=== PATIENT | female | born 1985 | race Caucasian/White ===

== ENCOUNTER 2017-02-28 13:54 | Inpatient (IN) | payer OTHER ==
[~2017-02-28] VITALS: Ht 152.4 cm; Wt 56.8 kg
[~2017-02-28 13:54] MED LIST: ACETAMINOPHEN500 MG PO; AMOXICILLIN500 M1 PO; B-1100 MG PO; BACTRIM,SEPT1 TABLET PO; BUPRENORPHIN SUB 8MG; BUTALB-APAP-CA1 EACH; CIPRO500 MG PO; CLEOCIN300 MG PO; Dulcolax PR; HYDROCODON-ACE1 EAC7 PO; LIBRIUM25 MG PO; MACROBID100 MG PO; NORCO 7.5/321 TABLET PO; PEN-VEE K,VEET500 MG PO; PERCOCET 5/31 TABLET PO; Percocet 5/325,Endoc PO; SUBUTEX PO; TYLENOL EXTRA500 MG PO; ULTRAM50 MG PO; ZEBUTAL CAPSUL1 EACH; ZOFRAN ODT4 MG PO; ZOFRAN4 MG PO
[2017-02-28 15:00] LABS: MCH 32.5 PG (29.0-34.0); MCV 98.5 FL (83-99); MEAN PLAT.VOLUME 10.2 uM^3 (9.5-12.4); PLATELET COUNT 207 K/uL (156-360); RBC DIS.WIDTH-SD 58.9 % (39-53); RED BLOOD COUNT 3.35 M/uL (3.80-5.20); WHITE BLOOD COUNT 11.5 K/uL (4.1-10.2)
[2017-02-28 15:09] LABS: CHLORIDE 81 mEq/L (99-109); SODIUM 131 mEq/L (136-147)
[2017-02-28 15:12] LABS: GLUCOSE 140 mg/dL (70-99)
[2017-02-28 15:13] LABS: ANION GAP 28 MEQ/L (2-14)
[2017-02-28 15:14] LABS: TOTAL BILIRUBIN 6.5 mg/dL (0.0-1.0)
[2017-02-28 15:15] LABS: ALKALINE PHOSPHATASE 329 IU/L (3-129); GFR ESTIMATE (CALCULATED) > 59 mL/min/
[2017-02-28 15:16] LABS: UREA NITROGEN (BUN) 7 mg/dL (9-23)
[2017-02-28 15:25] LABS: QUANTITATIVE HCG < 4.0 MIU/ML
[2017-02-28 15:26] LABS: ADD MIUA? YES; BILIRUBIN MODERATE; BLOOD SMALL; COLOR AMBER ((YELLOW)); GLUCOSE (STRIP) NEGATIVE; KETONES NEGATIVE; LEUKOCYTES TRACE; NITRITE NEGATIVE; PROTEIN (STRIP) 100; SPECIFIC GRAVITY 1.019 (1.000-1.030)
[2017-02-28 15:38] LABS: RED BLOOD CELLS 0-5 /HPF (0-5)
[2017-02-28 15:39] LABS: BACTERIA 2+ /HPF; EPITHELIAL CELLS 1+ /HPF; MUCUS NONE SEEN /LPF; UCUL ADDED? YES
[2017-02-28 15:48] LABS: AMYLASE 250 IU/L (1-118)
[2017-02-28 15:57] LABS: LIPASE 604 U/L (1.0-51.0)
[2017-02-28 16:00] LABS: POTASSIUM 2.4 mEq/L (3.7-5.4)
[2017-02-28 16:34] LABS: ICTOTEST POSITIVE
[2017-02-28 17:18] LABS: CARBON DIOXIDE (BICARBONATE) 29.3 MEQ/L (20-31)
[2017-02-28] MEDS ORDERED: MYCOSTATIN 100,60 ML PO (19:19)
[2017-02-28] MEDS ORDERED: VALTREX50 MG/ML PO (19:20)
[2017-02-28] MEDS ORDERED: ZUBSOLV 8.6-2.1 EACH SL (19:20)
[2017-02-28] MEDS ORDERED: PAXIL10 MG PO (19:21)
[2017-02-28] MEDS ORDERED: QUETIAPINE FUM200 MG PO (19:21)
[2017-02-28] MEDS ORDERED: TYLENOL EXTRA500 MG PO (19:22)
[2017-02-28] MEDS ORDERED: BENADRYL25 MG PO (19:22)
[2017-02-28] MEDS ORDERED: TRAZODONE HCL50 MG PO (19:22)
[2017-02-28 22:26] VITALS: BP 112/71
[2017-02-28 23:05] VITALS: BP 102/71
[2017-03-01 00:31] LABS: SERUM ETHYL ALCOHOL < 10 mg/dL
[2017-03-01 00:41] VITALS: BP 111/68
[2017-03-01 04:15] VITALS: BP 116/73
[2017-03-01 05:04] LABS: SODIUM 132 mEq/L (136-147)
[2017-03-01 05:07] LABS: SODIUM 132 mEq/L (136-147)
[2017-03-01 05:07] LABS: INTER. NORMALIZED RATIO 1.9; PROTHROMBIN TIME 19.2 (9.2-11.2); PTT 39.7 (25-32)
[2017-03-01 05:08] LABS: ANION GAP 20 MEQ/L (2-14)
[2017-03-01 05:09] LABS: TOTAL BILIRUBIN 6.2 mg/dL (0.0-1.0)
[2017-03-01 05:10] LABS: ANION GAP 19 MEQ/L (2-14); GFR ESTIMATE (CALCULATED) > 59 mL/min/
[2017-03-01 05:11] LABS: TOTAL BILIRUBIN 6.2 mg/dL (0.0-1.0); UREA NITROGEN (BUN) 3 mg/dL (9-23)
[2017-03-01 05:13] LABS: GFR ESTIMATE (CALCULATED) > 59 mL/min/
[2017-03-01 05:14] LABS: LIPASE 271 U/L (1.0-51.0); UREA NITROGEN (BUN) 3 mg/dL (9-23)
[2017-03-01 05:16] LABS: HEMATOCRIT 23.3 % (36.0-46.0); MCH 32.5 PG (29.0-34.0); MCHC 32.6 G/DL (30.0-36.0); MCV 99.6 FL (83-99); MEAN PLAT.VOLUME 10.7 uM^3 (9.5-12.4); RBC DIS.WIDTH-CV 15.7 % (11.8-14.6); RBC DIS.WIDTH-SD 56.3 % (39-53)
[2017-03-01 05:17] LABS: PLATELET COUNT 136 K/uL (156-360); RED BLOOD COUNT 2.34 M/uL (3.80-5.20); WHITE BLOOD COUNT 6.6 K/uL (4.1-10.2)
[2017-03-01 05:34] LABS: GLUCOSE 79 mg/dL (70-99)
[2017-03-01 05:35] LABS: ALKALINE PHOSPHATASE 230 IU/L (3-129); ALKALINE PHOSPHATASE 233 IU/L (3-129); AMYLASE 143 IU/L (1-118); AMYLASE 144 IU/L (1-118); CHLORIDE 91 mEq/L (99-109); CHLORIDE 92 mEq/L (99-109); GLUCOSE 79 mg/dL (70-99); POTASSIUM 2.2 mEq/L (3.7-5.4); POTASSIUM 2.3 mEq/L (3.7-5.4)
[2017-03-01 06:17] LABS: HEMATOCRIT 23.3 % (36.0-46.0); MCH 32.3 PG (29.0-34.0); MCHC 32.6 G/DL (30.0-36.0); MCV 99.1 FL (83-99); MEAN PLAT.VOLUME 10.2 uM^3 (9.5-12.4); PLATELET COUNT 155 K/uL (156-360); RBC DIS.WIDTH-CV 15.8 % (11.8-14.6); RBC DIS.WIDTH-SD 57.6 % (39-53); RED BLOOD COUNT 2.35 M/uL (3.80-5.20); WHITE BLOOD COUNT 6.6 K/uL (4.1-10.2)
[2017-03-01 06:30] LABS: GLOBULINS 2.7 G/DL (2.3-3.5)
[2017-03-01 06:41] LABS: EOSINOPHIL (%) 1.5 % (0-5); EOSINOPHIL COUNT 0.1 K/uL (0-0.3); IMMATURE GRANULOCYTE (%) 0.8 % (0.0-0.7); IMMATURE GRANULOCYTE COUNT 0.1 K/uL; INSTRUMENT ABS NEUTROPHIL CT 4.3 K/uL; LYMPHOCYTE COUNT 1.7 K/uL (1.0-2.8); MONOCYTE (%) 7.3 % (3-12); MONOCYTE COUNT 0.5 K/uL (0-0.8); NEUTROPHIL (%) 64.5 % (45-76); NEUTROPHIL COUNT 4.3 K/uL (1.8-6.4)
[2017-03-01 07:18] VITALS: BP 113/72
[2017-03-01 11:33] LABS: HBSG INDEX 0.27
[2017-03-01 11:34] LABS: HPCA INDEX 0.22
[2017-03-01 11:35] LABS: ANTI-HEPATITIS A VIRUS (IGM) Nonreactive; HAV INDEX 0.53
[2017-03-01 11:36] LABS: ANTI-HEPATITIS B CORE (IGM) Nonreactive; HBC IgM INDEX 0.16
[2017-03-01 11:39] VITALS: BP 110/71
[2017-03-01 13:22] LABS: FERRITIN 1071 NG/ML (10-291)
[2017-03-01 13:23] LABS: MAGNESIUM 1.9 mg/dl (1.3-2.7)
[2017-03-01 14:09] LABS: TRIGLYCERIDES 388 MG/DL (Normal: <150)
[2017-03-01 20:13] VITALS: BP 97/64
[2017-03-01 22:35] VITALS: BP 107/69
[2017-03-02] VITALS (15 sets, daily range): BP systolic 91–110; BP diastolic 52–82
[2017-03-02 07:22] LABS: INTER. NORMALIZED RATIO 2.3; PROTHROMBIN TIME 23.5 (9.2-11.2)
[2017-03-02 07:26] LABS: ALKALINE PHOSPHATASE 229 IU/L (3-129); AMYLASE 38 IU/L (1-118); ANION GAP 14 MEQ/L (2-14); CHLORIDE 95 MEQ/L (99-109); GFR ESTIMATE (CALCULATED) > 59 mL/min/; GLUCOSE 65 mg/dL (70-99); POTASSIUM 2.7 MEQ/L (3.7-5.4); SAMPLE HEMOLYSIS CHECK 0; SAMPLE ICTERIC CHECK 1; SAMPLE LIPEMIA CHECK 0; SODIUM 133 MEQ/L (136-147); TOTAL BILIRUBIN 5.4 MG/DL (0.0-1.0); UREA NITROGEN (BUN) 2 mg/dL (9-23)
[2017-03-02 07:37] LABS: HEMATOCRIT 21.3 % (36.0-46.0); MCH 32.9 PG (29.0-34.0); MCHC 32.4 G/DL (30.0-36.0); MCV 101.4 FL (83-99); MEAN PLAT.VOLUME 10.8 uM^3 (9.5-12.4); PLATELET COUNT 157 K/uL (156-360); RBC DIS.WIDTH-CV 15.7 % (11.8-14.6); RBC DIS.WIDTH-SD 58.4 % (39-53); WHITE BLOOD COUNT 7.4 K/uL (4.1-10.2)
[2017-03-02 10:49] LABS: IMM.RETIC FRACTION 17.4 % (3-19); RETIC HGB EQUIVALENT 31.1 (28-36); RETICULOCYTE COUNT 1.9 % (0.5-1.8)
[2017-03-02 11:24] LABS: LACTATE DEHYDROGENASE 193 IU/L (20-246)
[2017-03-02 13:04] LABS: HEMATOCRIT 25.5 % (36.0-46.0)
[2017-03-02 13:05] LABS: MCV 105.4 FL (83-99)
[2017-03-02 13:40] LABS: ALBUMIN 2.46 G/DL (3.6-4.9); ALBUMIN PERCENT 47.4 %; ALPHA-1 PERCENT 5.8 %; ALPHA-2 GLOBULIN 0.55 G/DL (0.45-0.85); ALPHA-2 PERCENT 10.5 %; GAMMA PERCENT 21.3 %; INTERPRETATION: Essentially normal.; SERUM GEL NO. 63-7
[2017-03-02 18:24] LABS: HEMATOCRIT 20.1 % (36.0-46.0); MCH 32.7 PG (29.0-34.0); MCHC 31.8 G/DL (30.0-36.0); MCV 102.6 FL (83-99); MEAN PLAT.VOLUME 10.3 uM^3 (9.5-12.4); PLATELET COUNT 176 K/uL (156-360); RBC DIS.WIDTH-CV 16.1 % (11.8-14.6); RBC DIS.WIDTH-SD 61.3 % (39-53); RED BLOOD COUNT 1.96 M/uL (3.80-5.20); WHITE BLOOD COUNT 7.2 K/uL (4.1-10.2)
[2017-03-02 20:51] LABS: INTER. NORMALIZED RATIO 2.1
[2017-03-02 21:08] LABS: ALKALINE PHOSPHATASE 220 IU/L (3-129); ANION GAP 10 MEQ/L (2-14); CHLORIDE 98 MEQ/L (99-109); GFR ESTIMATE (CALCULATED) > 59 mL/min/; GLUCOSE 132 mg/dL (70-99); POTASSIUM 3.3 MEQ/L (3.7-5.4); SAMPLE HEMOLYSIS CHECK 0; SAMPLE ICTERIC CHECK 1; SAMPLE LIPEMIA CHECK 0; SODIUM 134 MEQ/L (136-147); TOTAL BILIRUBIN 4.9 MG/DL (0.0-1.0); UREA NITROGEN (BUN) 2 mg/dL (9-23)
[2017-03-02 22:41] LABS: METH RESISTANT S AUREUS PCR NEGATIVE (NEGATIVE)
[2017-03-02 22:56] LABS: PROBE CHECK PASS; SPECIMEN PROCESSING CONTROL PASS
[2017-03-03] VITALS (20 sets, daily range): BP systolic 86–114; BP diastolic 54–84
[2017-03-03 01:54] LABS: HEMATOCRIT 29.1 % (36.0-46.0); MCH 31.9 PG (29.0-34.0); MCV 96.7 FL (83-99); MEAN PLAT.VOLUME 9.9 uM^3 (9.5-12.4); PLATELET COUNT 179 K/uL (156-360); RBC DIS.WIDTH-CV 17.4 % (11.8-14.6); RED BLOOD COUNT 3.01 M/uL (3.80-5.20); WHITE BLOOD COUNT 9.4 K/uL (4.1-10.2)
[2017-03-03 02:03] LABS: POTASSIUM 3.1 mEq/L (3.7-5.4); SODIUM 137 mEq/L (136-147)
[2017-03-03 02:07] LABS: ANION GAP 11 MEQ/L (2-14)
[2017-03-03 02:09] LABS: GFR ESTIMATE (CALCULATED) > 59 mL/min/
[2017-03-03 02:10] LABS: CHLORIDE 102 mEq/L (99-109); GLUCOSE 98 mg/dL (70-99); UREA NITROGEN (BUN) 3 mg/dL (9-23)
[2017-03-03 06:27] LABS: EOSINOPHIL (%) 0.2 % (0-5); HEMATOCRIT 27.7 % (36.0-46.0); IMMATURE GRANULOCYTE (%) 1.8 % (0.0-0.7); IMMATURE GRANULOCYTE COUNT 0.2 K/uL; INSTRUMENT ABS NEUTROPHIL CT 6.3 K/uL; LYMPHOCYTE COUNT 1.7 K/uL (1.0-2.8); MCH 31.9 PG (29.0-34.0); MCHC 32.5 G/DL (30.0-36.0); MCV 98.2 FL (83-99); MEAN PLAT.VOLUME 10.1 uM^3 (9.5-12.4); MONOCYTE (%) 10.1 % (3-12); MONOCYTE COUNT 0.9 K/uL (0-0.8); NEUTROPHIL (%) 69.2 % (45-76); NEUTROPHIL COUNT 6.3 K/uL (1.8-6.4); NRBC (%) 0.2 /100 WBC (0-0); PLATELET COUNT 179 K/uL (156-360); RBC DIS.WIDTH-CV 18.1 % (11.8-14.6); RBC DIS.WIDTH-SD 64.6 % (39-53); RED BLOOD COUNT 2.82 M/uL (3.80-5.20); WHITE BLOOD COUNT 9.1 K/uL (4.1-10.2)
[2017-03-03 06:31] LABS: INTER. NORMALIZED RATIO 1.8; PROTHROMBIN TIME 18.2 (9.2-11.2)
[2017-03-03 06:51] LABS: ALKALINE PHOSPHATASE 199 IU/L (3-129); ANION GAP 9 MEQ/L (2-14); CHLORIDE 104 MEQ/L (99-109); GFR ESTIMATE (CALCULATED) > 59 mL/min/; GLUCOSE 74 mg/dL (70-99); POTASSIUM 3.8 MEQ/L (3.7-5.4); SAMPLE HEMOLYSIS CHECK 0; SAMPLE ICTERIC CHECK 1; SAMPLE LIPEMIA CHECK 0; SODIUM 137 MEQ/L (136-147); TOTAL BILIRUBIN 4.2 MG/DL (0.0-1.0); UREA NITROGEN (BUN) 3 mg/dL (9-23)
[2017-03-03 09:23] LABS: CHLORIDE 105 mEq/L (99-109); POTASSIUM 3.8 mEq/L (3.7-5.4); SODIUM 138 mEq/L (136-147)
[2017-03-03 09:25] LABS: GLUCOSE 66 mg/dL (70-99)
[2017-03-03 09:26] LABS: ANION GAP 14 MEQ/L (2-14)
[2017-03-03 09:29] LABS: GFR ESTIMATE (CALCULATED) > 59 mL/min/
[2017-03-03 09:30] LABS: UREA NITROGEN (BUN) 3 mg/dL (9-23)
[2017-03-03 10:12] LABS: INTERNAL CONTROL VALID? YES
[2017-03-03 10:34] LABS: MAGNESIUM 1.7 mg/dL (1.3-2.7)
[2017-03-03 13:59] LABS: HEMATOCRIT 28.2 % (36.0-46.0); MCH 33.6 PG (29.0-34.0); MCV 101.8 FL (83-99); MEAN PLAT.VOLUME 10.3 uM^3 (9.5-12.4); NRBC (%) 0.3 /100 WBC (0-0); PLATELET COUNT 196 K/uL (156-360); RBC DIS.WIDTH-CV 19.5 % (11.8-14.6); RBC DIS.WIDTH-SD 71.2 % (39-53); RED BLOOD COUNT 2.77 M/uL (3.80-5.20); WHITE BLOOD COUNT 9.4 K/uL (4.1-10.2)
[2017-03-03 20:06] LABS: MITOCHONDRIAL (M2) ANTIBODIES+ <=20.0 U (<=20.0)
[2017-03-03 22:08] LABS: HEMATOCRIT 29.6 % (36.0-46.0); MCH 33.8 PG (29.0-34.0); MCHC 33.4 G/DL (30.0-36.0); MEAN PLAT.VOLUME 10.1 uM^3 (9.5-12.4); NRBC (%) 0.2 /100 WBC (0-0); PLATELET COUNT 180 K/uL (156-360); RBC DIS.WIDTH-CV 19.4 % (11.8-14.6); RBC DIS.WIDTH-SD 70.8 % (39-53); RED BLOOD COUNT 2.93 M/uL (3.80-5.20); WHITE BLOOD COUNT 8.2 K/uL (4.1-10.2)
[2017-03-04 03:00] VITALS: BP 91/62
[2017-03-04 06:24] LABS: EOSINOPHIL (%) 1.1 % (0-5); EOSINOPHIL COUNT 0.1 K/uL (0-0.3); IMMATURE GRANULOCYTE (%) 2.8 % (0.0-0.7); IMMATURE GRANULOCYTE COUNT 0.3 K/uL; INSTRUMENT ABS NEUTROPHIL CT 5.8 K/uL; LYMPHOCYTE COUNT 1.9 K/uL (1.0-2.8); MCH 32.4 PG (29.0-34.0); MCHC 32.3 G/DL (30.0-36.0); MCV 100.3 FL (83-99); MONOCYTE (%) 11.6 % (3-12); MONOCYTE COUNT 1.1 K/uL (0-0.8); NEUTROPHIL (%) 63.3 % (45-76); NEUTROPHIL COUNT 5.8 K/uL (1.8-6.4); PLATELET COUNT 180 K/uL (156-360); RBC DIS.WIDTH-CV 19.8 % (11.8-14.6); RBC DIS.WIDTH-SD 70.4 % (39-53); RED BLOOD COUNT 2.99 M/uL (3.80-5.20); WHITE BLOOD COUNT 9.1 K/uL (4.1-10.2)
[2017-03-04 06:41] LABS: INTER. NORMALIZED RATIO 1.7; PROTHROMBIN TIME 17.5 (9.2-11.2); PTT 34.6 (25-32)
[2017-03-04 06:42] LABS: CHLORIDE 105 mEq/L (99-109); POTASSIUM 3.5 mEq/L (3.7-5.4); SODIUM 137 mEq/L (136-147)
[2017-03-04 06:45] LABS: ANION GAP 13 MEQ/L (2-14)
[2017-03-04 06:47] LABS: ALKALINE PHOSPHATASE 205 IU/L (3-129)
[2017-03-04 07:00] LABS: GLUCOSE 85 mg/dL (70-99); TOTAL BILIRUBIN 3.5 mg/dL (0.0-1.0)
[2017-03-04 07:17] LABS: GFR ESTIMATE (CALCULATED) > 59 mL/min/
[2017-03-04 07:22] LABS: UREA NITROGEN (BUN) < 2 mg/dL (9-23)
[2017-03-04 07:30] VITALS: BP 103/68
[2017-03-04 09:25] LABS: QUANTITATIVE HCG < 4.0 MIU/ML
[2017-03-04 12:00] VITALS: BP 113/72
[2017-03-04 14:12] LABS: HEMATOCRIT 29.8 % (36.0-46.0); MCHC 32.2 G/DL (30.0-36.0); MCV 99.3 FL (83-99); MEAN PLAT.VOLUME 10.1 uM^3 (9.5-12.4); PLATELET COUNT 199 K/uL (156-360); RBC DIS.WIDTH-CV 19.4 % (11.8-14.6); RBC DIS.WIDTH-SD 68.4 % (39-53)
[2017-03-04 17:11] VITALS: BP 93/62
[2017-03-04 18:45] VITALS: BP 89/55
[2017-03-04 23:15] VITALS: BP 99/68
[2017-03-05 01:08] LABS: HEMATOCRIT 31.8 % (36.0-46.0); MCH 32.7 PG (29.0-34.0); MCHC 32.4 G/DL (30.0-36.0); MEAN PLAT.VOLUME 10.3 uM^3 (9.5-12.4); PLATELET COUNT 172 K/uL (156-360); RBC DIS.WIDTH-CV 19.9 % (11.8-14.6); RBC DIS.WIDTH-SD 70.5 % (39-53); RED BLOOD COUNT 3.15 M/uL (3.80-5.20); WHITE BLOOD COUNT 8.7 K/uL (4.1-10.2)
[2017-03-05 03:30] VITALS: BP 93/54
[2017-03-05 06:29] LABS: BASOPHIL COUNT 0.1 K/uL (0-0.1); EOSINOPHIL (%) 0.9 % (0-5); EOSINOPHIL COUNT 0.1 K/uL (0-0.3); HEMATOCRIT 30.4 % (36.0-46.0); IMMATURE GRANULOCYTE (%) 1.9 % (0.0-0.7); IMMATURE GRANULOCYTE COUNT 0.2 K/uL; INSTRUMENT ABS NEUTROPHIL CT 5.3 K/uL; LYMPHOCYTE COUNT 1.5 K/uL (1.0-2.8); MCH 32.1 PG (29.0-34.0); MCHC 31.6 G/DL (30.0-36.0); MCV 101.7 FL (83-99); MEAN PLAT.VOLUME 10.4 uM^3 (9.5-12.4); MONOCYTE (%) 12.3 % (3-12); NEUTROPHIL (%) 66.1 % (45-76); NEUTROPHIL COUNT 5.3 K/uL (1.8-6.4); PLATELET COUNT 191 K/uL (156-360); RBC DIS.WIDTH-CV 19.9 % (11.8-14.6); RED BLOOD COUNT 2.99 M/uL (3.80-5.20); WHITE BLOOD COUNT 8.1 K/uL (4.1-10.2)
[2017-03-05 07:12] LABS: ALKALINE PHOSPHATASE 191 IU/L (3-129); ANION GAP 11 MEQ/L (2-14); CHLORIDE 104 MEQ/L (99-109); DIRECT BILIRUBIN 1.9 mg/dL (0.0-0.3); GFR ESTIMATE (CALCULATED) > 59 mL/min/; GLUCOSE 68 mg/dL (70-99); POTASSIUM 3.5 MEQ/L (3.7-5.4); SAMPLE HEMOLYSIS CHECK 0; SAMPLE ICTERIC CHECK 0; SAMPLE LIPEMIA CHECK 0; SODIUM 137 MEQ/L (136-147)
[2017-03-05 07:14] LABS: MAGNESIUM 1.2 mg/dl (1.3-2.7); TOTAL BILIRUBIN 3.1 MG/DL (0.0-1.0); UREA NITROGEN (BUN) < 2 mg/dL (9-23)
[2017-03-05 07:30] VITALS: BP 101/65
[2017-03-05 12:32] VITALS: BP 114/67
[2017-03-05 13:39] LABS: HEMATOCRIT 32.9 % (36.0-46.0); MCH 32.7 PG (29.0-34.0); MCHC 32.2 G/DL (30.0-36.0); MCV 101.5 FL (83-99); MEAN PLAT.VOLUME 9.9 uM^3 (9.5-12.4); PLATELET COUNT 215 K/uL (156-360); RBC DIS.WIDTH-CV 19.8 % (11.8-14.6); RBC DIS.WIDTH-SD 72.6 % (39-53); RED BLOOD COUNT 3.24 M/uL (3.80-5.20); WHITE BLOOD COUNT 8.9 K/uL (4.1-10.2)
[2017-03-05] MEDS ORDERED: LEVOFLOXACIN750 MG PO (15:17)
[2017-03-05] MEDS ORDERED: XIFAXAN550 MG PO (15:18)
[2017-03-05] MEDS ORDERED: NICOTINE PATCH1 EAC2 TD (15:18)
[2017-03-05] MEDS ORDERED: FOLIC ACID1 MG PO (15:21)
[2017-03-05] MEDS ORDERED: THIAMINE HCL100 MG PO (15:21)
[2017-03-05] MEDS ORDERED: MEGA MULTI FOR1 EACH PO (15:22)
[2017-03-05] MEDS ORDERED: CONSTULOSE10 GM/15 M PO (15:31)
== END 2017-03-05 16:51 | disposition home or self-care (01) | DRG 871 ==
LOC: EME 13:54 → 4EAST 20:52 → EDOF 20:52 → 4EAST 22:15 → 4WEST 03-02 20:58 → 4EAST 03-03 15:56
PROVIDERS: Emergency Medicine; Hospitalist; Internal Medicine; Psychiatry & Neurology Neurology; Specialist
PROC: 30233N1 Transfusion of Nonautologous Red Blood Cells into Peripheral Vein, Percutaneous Approach (ICD-10-PCS; principal; 2017-03-02)
DX: A41.9 Sepsis, unspecified organism (principal); F10.239 Alcohol dependence with withdrawal, unspecified; F10.229 Alcohol dependence with intoxication, unspecified; Y90.0 Blood alcohol level of less than 20 mg/100 ml; E87.1 Hypo-osmolality and hyponatremia; E87.6 Hypokalemia; J69.0 Pneumonitis due to inhalation of food and vomit; R73.9 Hyperglycemia, unspecified; K21.9 Gastro-esophageal reflux disease without esophagitis; F31.9 Bipolar disorder, unspecified; G43.909 Migraine, unspecified, not intractable, without status migrainosus; K76.0 Fatty (change of) liver, not elsewhere classified; F17.200 Nicotine dependence, unspecified, uncomplicated; R64 Cachexia; E87.2 Acidosis; J45.909 Unspecified asthma, uncomplicated; G40.909 Epilepsy, unspecified, not intractable, without status epilepticus; A60.09 Herpesviral infection of other urogenital tract; B37.0 Candidal stomatitis; F41.9 Anxiety disorder, unspecified; F12.90 Cannabis use, unspecified, uncomplicated; F11.10 Opioid abuse, uncomplicated; K72.90 Hepatic failure, unspecified without coma; I95.9 Hypotension, unspecified; K70.10 Alcoholic hepatitis without ascites
CPT/HCPCS: 71010; 71020; 71111; 74020; 74177; 74183; 76705; 80048; 80048 91; 80053; 80076; 80306 90; 81003; 81256 90; 82140; 82150; 82272; 82390; 82607; 82728; 82803; 83010 90; 83605; 83615; 83690; 83735; 84100; 84165; 84478; 84702; 85014; 85018; 85025; 85027; 85045; 85610; 85730; 86038; 86256 90; 86705; 86709; 86803; 86900; 86901; 86920; 87040; 87077; 87086; 87186; 87340; 87641; 93005; 99281; 99285; C9113; G0480; J0574; J1644; J2060; J2270; J2405; J2543; J3411; J3430; J3475; J3480; J7030; J7050; J7120; J7512; P9016; S0028

== ENCOUNTER 2017-03-20 20:32 | Inpatient (IN) | payer OTHER ==
[~2017-03-20] VITALS: Ht 154.9 cm; Wt 66.0 kg
[~2017-03-20 20:32] MED LIST changes: +BENADRYL25 MG PO; +CONSTULOSE10 GM/15 M PO; +FOLIC ACID1 MG PO; +LEVOFLOXACIN750 MG PO; +MEGA MULTI FOR1 EACH PO; +MYCOSTATIN 100,60 ML PO; +NICOTINE PATCH1 EAC2 TD; +PAXIL10 MG PO; +QUETIAPINE FUM200 MG PO; +THIAMINE HCL100 MG PO; +TRAZODONE HCL50 MG PO; +VALTREX50 MG/ML PO; +XIFAXAN550 MG PO; +ZUBSOLV 8.6-2.1 EACH SL
[2017-03-20 21:32] LABS: HEMATOCRIT 31.9 % (36.0-46.0); MCH 32.6 PG (29.0-34.0); MCHC 31.7 G/DL (30.0-36.0); MCV 102.9 FL (83-99); MEAN PLAT.VOLUME 10.8 uM^3 (9.5-12.4); PLATELET COUNT 218 K/uL (156-360); WHITE BLOOD COUNT 11.4 K/uL (4.1-10.2)
[2017-03-20 21:41] LABS: CHLORIDE 104 mEq/L (99-109); POTASSIUM 3.7 mEq/L (3.7-5.4); SODIUM 139 mEq/L (136-147)
[2017-03-20 21:44] LABS: ANION GAP 7 MEQ/L (2-14); GLUCOSE 88 mg/dL (70-99)
[2017-03-20 21:45] LABS: TOTAL BILIRUBIN 1.7 mg/dL (0.0-1.0)
[2017-03-20 21:47] LABS: ALKALINE PHOSPHATASE 159 IU/L (3-129); GFR ESTIMATE (CALCULATED) > 59 mL/min/
[2017-03-20 21:48] LABS: UREA NITROGEN (BUN) 2 mg/dL (9-23)
[2017-03-20 21:50] LABS: LIPASE 27 U/L (1.0-51.0)
[2017-03-20 21:58] LABS: AMYLASE 26 IU/L (1-118)
[2017-03-20 22:06] LABS: SERUM ETHYL ALCOHOL < 10 mg/dL
[2017-03-20 22:24] LABS: INTER. NORMALIZED RATIO 1.4; PROTHROMBIN TIME 14.9 (9.2-11.2)
[2017-03-20 22:55] LABS: ADD MIUA? YES; BILIRUBIN NEGATIVE; BLOOD MODERATE; COLOR AMBER ((YELLOW)); GLUCOSE (STRIP) NEGATIVE; KETONES NEGATIVE; LEUKOCYTES TRACE; NITRITE NEGATIVE; PROTEIN (STRIP) 30; UROBILINOGEN 0.2 MG/DL (0.2-1.0)
[2017-03-20 22:58] LABS: BACTERIA RARE /HPF; EPITHELIAL CELLS 2+ /HPF; HYALINE CASTS 0-5 /LPF; MUCUS 2+ /LPF; RED BLOOD CELLS 20-30 /HPF (0-5)
[2017-03-21 01:20] LABS: QUANTITATIVE HCG < 4.0 MIU/ML
[2017-03-21 08:04] LABS: MAGNESIUM 1.2 mg/dL (1.3-2.7)
[2017-03-21] MEDS ORDERED: ZUBSOLV 8.6-2.1 EACH SL (08:46)
[2017-03-21 10:30] VITALS: BP 96/60
[2017-03-21 12:21] VITALS: BP 96/65
[2017-03-21 15:40] VITALS: BP 97/63
[2017-03-21 16:45] VITALS: BP 94/59
[2017-03-21 20:00] VITALS: BP 102/56
[2017-03-21 23:26] VITALS: BP 100/55
[2017-03-22 06:43] LABS: BASOPHIL COUNT 0.1 K/uL (0-0.1); EOSINOPHIL (%) 1.7 % (0-5); EOSINOPHIL COUNT 0.2 K/uL (0-0.3); HEMATOCRIT 30.2 % (36.0-46.0); IMMATURE GRANULOCYTE (%) 0.6 % (0.0-0.7); IMMATURE GRANULOCYTE COUNT 0.1 K/uL; INSTRUMENT ABS NEUTROPHIL CT 6.4 K/uL; LYMPHOCYTE COUNT 2.7 K/uL (1.0-2.8); MCH 32.3 PG (29.0-34.0); MCHC 31.5 G/DL (30.0-36.0); MCV 102.7 FL (83-99); MEAN PLAT.VOLUME 11.3 uM^3 (9.5-12.4); MONOCYTE (%) 7.3 % (3-12); MONOCYTE COUNT 0.7 K/uL (0-0.8); NEUTROPHIL (%) 63.3 % (45-76); NEUTROPHIL COUNT 6.4 K/uL (1.8-6.4); PLATELET COUNT 231 K/uL (156-360); RBC DIS.WIDTH-SD 64.3 % (39-53); RED BLOOD COUNT 2.94 M/uL (3.80-5.20)
[2017-03-22 07:16] LABS: ALKALINE PHOSPHATASE 146 IU/L (3-129); ANION GAP 9 MEQ/L (2-14); CHLORIDE 106 MEQ/L (99-109); GFR ESTIMATE (CALCULATED) > 59 mL/min/; GLUCOSE 77 mg/dL (70-99); POTASSIUM 3.4 MEQ/L (3.7-5.4); SAMPLE HEMOLYSIS CHECK 0; SAMPLE ICTERIC CHECK 0; SAMPLE LIPEMIA CHECK 0; SODIUM 139 MEQ/L (136-147); TOTAL BILIRUBIN 1.4 MG/DL (0.0-1.0); UREA NITROGEN (BUN) 2 mg/dL (9-23)
[2017-03-22 07:31] VITALS: BP 90/53
[2017-03-22 09:37] LABS: TYPE OF FLUID PARACENTESIS
[2017-03-22 10:21] LABS: BODY FLUID EOSINOPHILS 0 % (0-25); BODY FLUID RBC'S < 1000 /MM^3 (0-100); BODY FLUID WBC'S 88 /MM^3 (0-500); MONONUCLEAR WBC'S 98 %; POLYNUCLEAR WBC'S 2 % (0-25)
[2017-03-22 10:27] LABS: BODY FLUID LDH 26 IU/L
[2017-03-22 10:28] LABS: BODY FLUID PROTEIN < 3 G/DL
[2017-03-22 16:01] VITALS: BP 88/53
[2017-03-22 23:57] VITALS: BP 80/53
[2017-03-23 00:59] VITALS: BP 86/54
[2017-03-23 07:18] LABS: ANION GAP 8 MEQ/L (2-14); CHLORIDE 105 MEQ/L (99-109); GFR ESTIMATE (CALCULATED) > 59 mL/min/; MAGNESIUM 1.1 mg/dl (1.3-2.7); POTASSIUM 3.3 MEQ/L (3.7-5.4); SAMPLE HEMOLYSIS CHECK 0; SAMPLE ICTERIC CHECK 0; SAMPLE LIPEMIA CHECK 0; SODIUM 140 MEQ/L (136-147)
[2017-03-23 07:20] LABS: GLUCOSE 98 mg/dL (70-99); UREA NITROGEN (BUN) < 2 mg/dL (9-23)
[2017-03-23 07:26] VITALS: BP 112/55
[2017-03-23 11:08] VITALS: BP 84/52
[2017-03-23 16:38] VITALS: BP 89/55
[2017-03-23 18:40] VITALS: BP 88/55
[2017-03-23 23:59] VITALS: BP 88/51
[2017-03-24 05:59] LABS: BASOPHIL COUNT 0.1 K/uL (0-0.1); EOSINOPHIL (%) 1.7 % (0-5); EOSINOPHIL COUNT 0.2 K/uL (0-0.3); HEMATOCRIT 30.6 % (36.0-46.0); IMMATURE GRANULOCYTE (%) 0.5 % (0.0-0.7); IMMATURE GRANULOCYTE COUNT 0.1 K/uL; INSTRUMENT ABS NEUTROPHIL CT 6.1 K/uL; LYMPHOCYTE COUNT 2.7 K/uL (1.0-2.8); MEAN PLAT.VOLUME 10.8 uM^3 (9.5-12.4); MONOCYTE (%) 8.2 % (3-12); MONOCYTE COUNT 0.8 K/uL (0-0.8); NEUTROPHIL (%) 62.1 % (45-76); NEUTROPHIL COUNT 6.1 K/uL (1.8-6.4); PLATELET COUNT 225 K/uL (156-360); RBC DIS.WIDTH-CV 16.7 % (11.8-14.6); RBC DIS.WIDTH-SD 63.5 % (39-53); RED BLOOD COUNT 2.97 M/uL (3.80-5.20); WHITE BLOOD COUNT 9.9 K/uL (4.1-10.2)
[2017-03-24 07:03] LABS: ANION GAP 7 MEQ/L (2-14); CHLORIDE 103 MEQ/L (99-109); GFR ESTIMATE (CALCULATED) > 59 mL/min/; GLUCOSE 112 mg/dL (70-99); SAMPLE HEMOLYSIS CHECK 0; SAMPLE ICTERIC CHECK 0; SAMPLE LIPEMIA CHECK 0; SODIUM 135 MEQ/L (136-147)
[2017-03-24 07:04] LABS: POTASSIUM 4.6 MEQ/L (3.7-5.4); UREA NITROGEN (BUN) < 2 mg/dL (9-23)
[2017-03-24 08:03] VITALS: BP 84/54
[2017-03-24 08:12] LABS: MAGNESIUM 1.4 mg/dl (1.3-2.7)
[2017-03-24 12:08] VITALS: BP 88/54
== END 2017-03-24 17:04 | disposition left against medical advice (07) | DRG 433 ==
LOC: EME 20:32 → RME 20:32 → EDOF 03-21 03:06 → 5SOUTH 03-21 03:06 → EDOF 03-21 11:03 → 5SOUTH 03-21 13:56 → EDOF 03-21 14:12 → 5SOUTH 03-21 15:52
PROVIDERS: Emergency Medicine; Hospitalist; Internal Medicine; Physician Assistant; Specialist
PROC: 0W9G3ZZ Drainage of Peritoneal Cavity, Percutaneous Approach (ICD-10-PCS; principal; 2017-03-22)
DX: K70.11 Alcoholic hepatitis with ascites (principal); I95.9 Hypotension, unspecified; D68.9 Coagulation defect, unspecified; K76.6 Portal hypertension; E87.2 Acidosis; E83.42 Hypomagnesemia; F11.20 Opioid dependence, uncomplicated; K70.31 Alcoholic cirrhosis of liver with ascites; D50.9 Iron deficiency anemia, unspecified; D63.8 Anemia in other chronic diseases classified elsewhere; E87.6 Hypokalemia; F10.20 Alcohol dependence, uncomplicated; F17.210 Nicotine dependence, cigarettes, uncomplicated; F20.9 Schizophrenia, unspecified; F41.0 Panic disorder [episodic paroxysmal anxiety]; F31.9 Bipolar disorder, unspecified; G40.909 Epilepsy, unspecified, not intractable, without status epilepticus; G43.909 Migraine, unspecified, not intractable, without status migrainosus; J45.909 Unspecified asthma, uncomplicated; K21.9 Gastro-esophageal reflux disease without esophagitis; Z79.899 Other long term (current) drug therapy; R60.0 Localized edema; R07.9 Chest pain, unspecified; E53.8 Deficiency of other specified B group vitamins
CPT/HCPCS: 74177; 76705; 78227; 80048; 80053; 81003; 82140; 82150; 82150 91; 82945; 83605; 83615 91; 83690; 83735; 84157; 84702; 85025; 85027; 85610; 85730; 87040; 87070; 87205; 88108; 88305; 89051; 93970; 93971; 93975; 99202; 99281; 99285; A9537; G0480; J0574; J2270; J2405; J2543; J2805; J3010; J3475; J7030; J7050; S0028

== ENCOUNTER 2017-04-11 12:51 | Emergency (ER) | payer OTHER ==
[~2017-04-11] VITALS: Ht 154.9 cm; Wt 51.4 kg
[2017-04-11] MEDS ORDERED: UNABLE TO OBTAIN (13:30)
[2017-04-11 14:28] VITALS: BP 92/66
== END 2017-04-11 14:30 | disposition home or self-care (01) ==
LOC: EME 12:51
PROC: 0HQ1XZZ Repair Face Skin, External Approach (ICD-10-PCS; principal; 2017-04-11)
DX: S01.81XA Laceration without foreign body of other part of head, initial encounter (principal); S00.01XA Abrasion of scalp, initial encounter; W10.1XXA Fall (on)(from) sidewalk curb, initial encounter; Y92.480 Sidewalk as the place of occurrence of the external cause; Y93.01 Activity, walking, marching and hiking; F17.200 Nicotine dependence, unspecified, uncomplicated
CPT/HCPCS: 99281; 99284